=== PATIENT | female | born 1985 | race Caucasian/White ===

== ENCOUNTER 2017-03-15 05:15 | Emergency (ER) | payer BC ==
[~2017-03-15] VITALS: Ht 170.2 cm; Wt 137.3 kg
[~2017-03-15 05:15] MED LIST: BACL10TA PO; CYCL-375 PO; HYDR-4246 PO; IBUP-1724 PO; LISI-625 PO; MELO-267 PO; NAPR-1119 PO; TRAM50TA4 PO
[2017-03-15 05:23] VITALS: Ht 170.2 cm; Wt 137.3 kg
[2017-03-15] MEDS ORDERED: DiphenhydrAMINE 50 MG/ML INJECTION IV ONE (06:00)
--- NOTE | 2017-03-15 06:31 | ERPDOC ---
Departure Disposition Decision Date: March 15, 2017 Disposition Decision Time: 06:34 Disposition: 01 DISCHARGED HOME, SELF-CARE Impression Impression Impression: Primary Impression: Viral exanthem Additional Impression: Hives Severity: Moderate Condition: Improved Seen By: Physician only Referrals: GALILEO LEOS MD (Family) Patient Instructions: Viral Exanthem (ED) Problems/Meds/Labs Reviewed?: Yes Medications reviewed and manag: Yes Additional Instructions: Prednisone 10 mg tablets, 3 tabs daily for 3 days, 2 tabs daily for 3 days, 1 tab daily for 3 days. Pepcid 20 mg tablet twice daily for 7 days. Claritin 10 mg tablet daily. Steroid cream applied 2-3 times daily to small areas which are the most irritated. Follow up care ordered?: Yes Mental Status: Alert, Oriented Scripts Fluticasone Propionate (Cutivate 0.5 mg/mL Cream) 30 Gm Cream..g. 1 APPLIC TOP BID for ITCHING, #60 GM 1 Refill Prov: AMADOU FRAIRE MD 03/15/17 Famotidine (Pepcid) 20 Mg Tablet 1 TAB PO BID, #60 TAB Prov: AMADOU FRAIRE MD 03/15/17 Prednisone (Prednisone) 10 Mg Tablet 0 PO TAPERQD, #18 TAB 30 mg daily x3 days 20 mg daily x3 days 10 mg daily x2 days Prov: AMADOU FRAIRE MD 03/15/17 HPI - Skin General General Chief Complaint: Skin Rash/Abscess Stated Complaint: RASH Time Seen by Provider: 06:27 HPI - Skin General Initial Comments 31-year-old female presents with rash on abdomen chest and flank. Also extends down the thighs. She has worked very hard to lose weight, has lost 125 pounds by watching her diet and working out. She's not had any bad side effects from the process. However she wonders if this is related to working out and sweating. Patient notes itching on skin. No new type of clothing. However her roommate did use a different laundry detergent and this started immediately after that. Patient is very switched back to another laundry detergent, but has not noted that this is resolved. No fevers no chills no body aches. She did have a viral infection about a week and a half ago, prior to this starting. No shortness of breath or sensation of throat tightening. Allergies: Coded Allergies: No Known Allergies (Unverified , 06/08/16) Past History Past Medical History Musculoskeletal: back pain Surgical History Denies Surgeries Social History Second Hand Exposure: Yes Substance Use Type: does not use Alcohol Intake: none Occupational Hazard: Yes Record Review Pertinent history updated: Yes Review of Systems Integumentary Skin: see HPI All other Systems All Other Systems: Reviewed and Negative Physical Exam General General Nourishment: well nourished, well developed, appears stated age, no acute distress General Body Habitus: well groomed Vitals and Pain First Documented Vital Signs Date Time Temp Pulse Resp B/P Pulse Ox O2 Delivery O2 Flow Rate FiO2 03/15/17 05:23 98.6 79 18 178/94 99 Room Air Weight: Kilograms: 137.300 Height (feet): 5 Height (inches): 7.00 Triage Pain Scale: Normal Exams: Head: Normocephalic w/o trauma Chest/Resp: Clear all sw[place], with good airflow, and symmetry bilaterally CV: Regular rate and rhythm, without murmur or gallop, Pulses 2+ all extremities, capillary refill, <2 seconds all ext., no pedal edema noted Neurologic: Patient is alert, and oriented, cranial nerves, motor/sensory/ cerebellar, exams w/o gross deficits, to observation Psychiatric: Patient exhibits, appropriate attention, emotion and affect Integumentary (brief) Comments Maculopapular rash spread across both sides of abdomen up on the chest down into groin and thighs. Also extends her back. This is a very sensitive rash. No drainage or pustular eruptions. Differential Diagnoses Considering: Cellulitis, Chickenpox, Folliculitis, Hives/Urticaria, Poison Lissa Dermatitis, Tinea Versicolor, Varicella/Shingles, Viral Exanthem, Other Progress Results/Orders Orders Procedure Category Date Status Time Diphenhydramine PHA 03/15/17 Complete (Benadryl) 06:00 Methylprednisolone PHA 03/15/17 Complete Sod Succ (Solu-Medrol 06:00 Medications Current ED Medications Diphenhydramine HCl (Benadryl) 50 mg O ONCE IV ; Start 03/15/17 at 06:00; Stop 03/15/17 at 06:01; Status DC Methylprednisolone Sodium Succinate (Solu-Medrol) 125 mg O ONCE IM Last administered on 03/15/17t 05:58; Start 03/15/17 at 06:00; Stop 03/15/17 at 06:01 ; Status DC Progress Progress Patient's given Solu-Medrol 125 IM. She is concerned about weight gain from steroids, I discussed the fact that this is a hydration effect typically and that it should resolve after she comes off the meds. She'll be placed on a redness on burst and taper. Pepcid twice a day. And Claritin 10 mg daily. Cutivate or other steroid cream to worst areas. Follow up with primary care provider during the week. AMADOU FRAIRE MD March 15, 2017 06:31
[2017-03-15] MEDS ORDERED: PRED10TA PO (06:37)
[2017-03-15] MEDS ORDERED: FLUT30CR3 TOP (06:37)
[2017-03-15] MEDS ORDERED: FAMO-137 PO (06:37)
[2017-03-15 06:42] VITALS: BP 178/94; PULSE 79; RESP 18; TEMP 98.6; O2SAT 99
== END 2017-03-15 06:42 | disposition home or self-care (01) ==
LOC: ED 05:15
DX: B08.8 Other specified viral infections characterized by skin and mucous membrane lesions (principal); L50.8 Other urticaria
CPT/HCPCS: 96372; 99283; J1200; J2930